=== PATIENT | male | born 1995 | race Caucasian/White ===

== ENCOUNTER 2017-08-09 21:27 | Emergency (ER) | payer BC, OTHER ==
[2017-08-09 21:34] VITALS: BP 139/90; PULSE 65; RESP 18; TEMP 98.2
[2017-08-09] MEDS ORDERED: HYDROcodone/APAP 5-325MG 1 EACH TAB PO STA (21:43)
[2017-08-09] MEDS ORDERED: CYCLOBENZAPRINE 10 MG TAB PO STA (21:43)
--- NOTE | 2017-08-09 21:46 | ED ---
Back Pain HPI - General Chief Complaint: Back Pain/Injury Stated Complaint: back problem Time Seen by Provider: 08/09/17 21:35 Source: patient, RN notes reviewed Mode of arrival: ambulatory Limitations: no limitations - History of Present Illness Initial Comments: This a 22-year-old male presents emergency Department with chief complaint of mid back pain. Patient states that he was doing some laundry felt a click snap in his back and states that he's had severe muscle spasms pain last 2 hours. Patient states she's had pain like this in the past several times states he normally does have some back issues. Patient states that he's been evaluated by his grandfather who is an orthopedic doctor. Patient states that this is the worst she's had in the past. Patient states pain is much worse with any movement especially twisting and bending. Patient tried some ibuprofen prior arrival minimal relief. Patient was advised come emergency from for pain relief. Patient denies any bowel bladder incontinence or retention. Denies any saddle anesthesias or lower extremity paresthesias. He states the pain is 9 is low back. He has no abdominal pains time denies chest pain or shortness breath. - Related Data Home Medications Medication Instructions Recorded Confirmed Ibuprofen [Motrin] 400 mg PO Q6HR PRN 08/09/17 08/09/17 Previous Rx's Medication Instructions Recorded Cyclobenzaprine [Flexeril] 10 mg PO TID PRN #15 tab 08/09/17 Hydrocodone/Acetaminophen [[place] 1 tab PO Q6HR PRN #20 tab 08/09/17 5-325] Ibuprofen [Motrin] 600 mg PO Q8HR PRN #30 tab 08/09/17 Allergies Allergy/AdvReac Type Severity Reaction Status Date / Time No Known Allergies Allergy Verified 08/09/17 21:44 Review of Systems ROS Statement: Those systems with pertinent positive or pertinent negative responses have been documented in the HPI. ROS Other: All systems not noted in ROS Statement are negative. Past Medical History Past Medical History: Pneumonia Additional Past Medical History / Comment(s): septic pneumonia admited to [facility]. History of Any Multi-Drug Resistant Organisms: None Reported Past Surgical History: Ear Surgery Additional Past Surgical History / Comment(s): myringotomy both ears Past Psychological History: No Psychological Hx Reported Smoking Status: Never smoker Past Alcohol Use History: None Reported Past Drug Use History: None Reported General Exam Limitations: no limitations General appearance: alert, in no apparent distress Head exam: Present: atraumatic, normocephalic, normal inspection Neck exam: Present: normal inspection, full ROM. Absent: tenderness, meningismus, lymphadenopathy Respiratory exam: Present: normal lung sounds bilaterally. Absent: respiratory distress, wheezes, rales, rhonchi, stridor Cardiovascular Exam: Present: regular rate, normal rhythm, normal heart sounds. Absent: systolic murmur, diastolic murmur, rubs, gallop, clicks GI/Abdominal exam: Present: soft, normal bowel sounds. Absent: distended, tenderness, guarding, rebound, rigid Extremities exam: Present: normal inspection, full ROM, normal capillary refill. Absent: tenderness, pedal edema, joint swelling, calf tenderness Back exam: Present: normal inspection, full ROM (Moderate discomfort with range of motion), tenderness (Tenderness along the paraspinal region of the thoracic mid to lower), paraspinal tenderness. Absent: vertebral tenderness Neurological exam: Present: alert, oriented X3, CN II-XII intact, reflexes normal. Absent: motor sensory deficit Course Vital Signs 08/09/17 21:33 Temperature 98.2 F Pulse Rate 65 Respiratory 18 Rate Blood Pressure 139/90 O2 Sat by Pulse 98 Oximetry Medical Decision Making - Medical Decision Making 22-year-old male presented unresponsive for thoracic back pain. Patient is resting back strain with muscle spasms. Patient has point tenderness with known injury. Patient we given pain medication and muscle relaxer. Patient was offered IM injections patient opted for oral tablets. Patient advised to follow-up with Dr. Murray orthopedics back specialist as had recurrent issues will be discharged with pain medication advised to apply heat and ice as directed 20 minutes at time return for any worsening symptoms. Disposition Clinical Impression: Acute thoracic back pain Disposition: HOME SELF-CARE Condition: Stable Instructions: Thoracic Back Strain (ED) Additional Instructions: Please return to the Emergency Department if symptoms worsen or any other concerns. Prescriptions: Cyclobenzaprine [Flexeril] 10 mg PO TID PRN #15 tab PRN Reason: Muscle Spasm Hydrocodone/Acetaminophen [[place] 5-325] 1 tab PO Q6HR PRN #20 tab PRN Reason: Pain Ibuprofen [Motrin] 600 mg PO Q8HR PRN #30 tab PRN Reason: Pain Referrals: None,Stated [Primary Care Provider] - 1-2 days David Cho DO [Doctor of Osteopathic Medicine] - 1-2 days Time of Disposition: 21:46
== END 2017-08-09 22:00 | disposition home or self-care (01) ==
LOC: EC 21:27
DX: M54.6 Pain in thoracic spine (principal); X50.1XXA Overexertion from prolonged static or awkward postures, initial encounter; Y93.E2 Activity, laundry
CPT/HCPCS: 99283

== ENCOUNTER 2018-10-12 11:09 | Emergency (ER) | payer OTHER ==
[2018-10-12] MEDS ORDERED: SODIUM CHLORIDE 0.9% 1,000 ML IV STA (12:05)
[2018-10-12] MEDS ORDERED: KETOROLAC 30 MG/ML 1 ML VIAL IVP STA (12:06)
[2018-10-12 12:37] LABS: ALT 24 U/L (21-72); AST 24 U/L (17-59); Albumin 4.5 g/dL (3.5-5.0); Alkaline Phosphatase 51 U/L (38-126); Amylase 74 U/L (30-110); Anion Gap 6 mmol/L; Basophils % (A) 1 %; Blood Urea Nitrogen 15 mg/dL (9-20); Calcium 9.5 mg/dL (8.4-10.2); Carbon Dioxide 29 mmol/L (22-30); Chloride 104 mmol/L (98-107); Eosinophils # (A) 0.1 k/uL (0-0.7); Eosinophils % (A) 2 %; Glucose 97 mg/dL (74-99); HCT 44.3 % (39.0-53.0); Lipase 267 U/L (23-300); Lymphocytes # (A) 2.7 k/uL (1.0-4.8); Lymphocytes % (A) 40 %; MCH 30.2 pg (25.0-35.0); MCHC 33.8 g/dL (31.0-37.0); MCV 89.3 fL (80.0-100.0); Mean Platelet Volume 6.5; Monocytes # (A) 0.6 k/uL (0-1.0); Monocytes % (A) 8 %; Neutrophils # (A) 3.1 k/uL (1.3-7.7); Neutrophils % (A) 47 %; Platelet Count 298 k/uL (150-450); Potassium 4.3 mmol/L (3.5-5.1); RBC 4.96 m/uL (4.30-5.90); RDW 12.3 % (11.5-15.5); Sodium 139 mmol/L (137-145); Total Protein 7.1 g/dL (6.3-8.2); WBC 6.6 k/uL (3.8-10.6)
[2018-10-12 13:25] LABS: Amorphous Sediment,Urine Rare /hpf; Appearance,Urine Cloudy (Clear); Bilirubin,Urine Negative (Negative); Blood,Urine Trace (Negative); Color,Urine Yellow; Glucose,Urine (UA) Negative (Negative); Ketones,Urine Negative (Negative); Leukocyte Esterase,Urine Trace (Negative); Mucus,Urine Many /hpf; Nitrite,Urine Negative (Negative); Protein,Urine Trace (Negative); RBC,Urine 3 /hpf (0-5); Specific Gravity,Urine 1.019 (1.001-1.035); Squamous Epithelial Cell,Urine 1 /hpf (0-4); Urobilinogen,Urine <2.0 mg/dL (<2.0); WBC,Urine 10 /hpf (0-5)
--- NOTE | 2018-10-12 14:12 | US ---
EXAMINATION TYPE: US scrotum with doppler. Grayscale and color Doppler Duplex imaging performed of t he scrotum. DATE OF EXAM: 10/12/2018 COMPARISON: NONE CLINICAL HISTORY: Pain, purulent drainage. EXAM MEASUREMENTS: TESTICLES: Right Testicle: 4.7 x 2.2 x 2.6 cm Left Testicle: 4.4 X 2.4 X 2.8 cm EPIDIDYMIS HEAD: Right Epididymis: 0.7 cm Left Epididymis: 0.9 cm Doppler performed to assess for testicular vascularity; good bilateral color flow and waveforms are s een. There is no evidence of testicular torsion. Presence of hydroceles: No Presence of varicoceles: No IMPRESSION: No sonographic evidence of epididymitis nor orchitis. No current evidence of testicular t orsion at the time of the examination.
--- NOTE | 2018-10-12 15:32 | ED ---
General Adult HPI - General Chief complaint: Abdominal Pain Stated complaint: discharge Time Seen by Provider: 10/12/18 11:26 Source: patient Mode of arrival: ambulatory Limitations: no limitations - History of Present Illness Initial comments: 23-year-old male presents to the emergency department for multiple complaints. Patient's main complaint is penile pain and discharge. Patient states this has been ongoing for the past 4-5 months. Patient states he has seen a urologist several times without diagnosis. Patient has been worked up and treated for prostatitis as well as all STDs including gonorrhea, chlamydia, Trichomonas. He has been tested for HIV and syphilis. Patient also admits to dysuria. Patient also complains of intermittent abdominal pain which has been consistent throughout his life. However it does seem to be worsening over the past several months. He states this is worse after having a bowel movement. Patient states he has a CT with and without contrast scheduled in one week. He states he is more concerned about his urethral discharge. He states he was supposed to get an ultrasound done but did not yet have insurance so did not do this.Patient has no other complaints at this time including shortness of breath, chest pain, nausea or vomiting, headache, or visual changes. - Related Data Previous Rx's Medication Instructions Recorded Doxycycline [Vibramycin] 100 mg PO BID 14 Days cap 10/12/18 Allergies Allergy/AdvReac Type Severity Reaction Status Date / Time No Known Allergies Allergy Verified 10/12/18 11:40 Review of Systems ROS Statement: Those systems with pertinent positive or pertinent negative responses have been documented in the HPI. ROS Other: All systems not noted in ROS Statement are negative. Past Medical History Past Medical History: Pneumonia Additional Past Medical History / Comment(s): vertigo, septic pneumonia admited to [facility]. History of Any Multi-Drug Resistant Organisms: None Reported Past Surgical History: Ear Surgery Additional Past Surgical History / Comment(s): myringotomy both ears Past Psychological History: No Psychological Hx Reported Smoking Status: Never smoker Past Alcohol Use History: None Reported Past Drug Use History: Marijuana General Exam Limitations: no limitations General appearance: alert, in no apparent distress Head exam: Present: atraumatic, normocephalic, normal inspection Eye exam: Present: normal appearance, PERRL, EOMI. Absent: scleral icterus, conjunctival injection, periorbital swelling ENT exam: Present: normal exam, mucous membranes moist Neck exam: Present: normal inspection, full ROM. Absent: tenderness, meningismus, lymphadenopathy Respiratory exam: Present: normal lung sounds bilaterally. Absent: respiratory distress, wheezes, rales, rhonchi, stridor Cardiovascular Exam: Present: regular rate, normal rhythm, normal heart sounds. Absent: systolic murmur, diastolic murmur, rubs, gallop, clicks GI/Abdominal exam: Present: soft, normal bowel sounds. Absent: distended, t enderness (No tenderness noted with palpation of the abdomen. Patient denies any pain at this time.), guarding, rebound, rigid exam: Absent: other (refused) Neurological exam: Present: alert, oriented X3, CN II-XII intact Psychiatric exam: Present: normal affect, normal mood Course Vital Signs 10/12/18 10/12/18 11:16 15:41 Temperature 98.4 F 98.5 F Pulse Rate 83 81 Respiratory 18 14 Rate Blood Pressure 136/78 123/70 O2 Sat by Pulse 98 97 Oximetry EKG Findings - EKG Comments: EKG Findings:: Sinus bradycardia with a ventricular rate of 52, DE int 132, QTC 398, no evidence of ST elevation or depression Medical Decision Making - Medical Decision Making 23-year-old male presents to the emergency department for a chief complaint of urethral discharge 5 months. Patient has been evaluated multiple times by urologists. He was tested for processes which was negative but he was treated regardless with Bactrim for several prescriptions. He was treated for gonorrhea chlamydia and Trichomonas as well but these tests came back negative. Patient does admit to testicular pain at times. CBC CMP unremarkable. Amylase and lipase within normal limits. Urine does show 10 white blood cells with trace blood. Ultrasound was performed which showed no evidence of epididymitis or orchitis. No evidence of testicular torsion. Discussed with patient that at this time I do not have a cause for his penile discharge. Patient states he was treated with azithromycin but never doxycycline therefore I did put patient on doxycycline for 14 days. Patient refused Rocephin as he did not want another shot that did not help him previously. Patient also refused vital stating he was thoroughly treated for Trichomonas. However these were tested in his urine. Regarding patient's abdominal pain he does not have any abdominal tenderness at this time. No pain at this time. Pain is intermittent and consistent with bowel movements. Patient will follow up for his CT outpatient which has been scheduled for next week. I believe this is appropriate as he has had these symptoms for years. Patient will follow-up with urology for urethral discharge as he is already following with them. He will also follow up with primary care. He will return here if he has any worsening symptoms. - Lab Data Result diagrams: 10/12/18 11:46 10/12/18 11:46 Lab Results 10/12/18 10/12/18 10/12/18 Range/Units 11:46 11:46 12:58 WBC 6.6 (3.8-10.6) k/uL RBC 4.96 (4.30-5.90) m/uL Hgb 15.0 (13.0-17.5) gm/dL Hct 44.3 (39.0-53.0) % MCV 89.3 (80.0-100.0) fL MCH 30.2 (25.0-35.0) pg MCHC 33.8 (31.0-37.0) g/dL RDW 12.3 (11.5-15.5) % Plt Count 298 (150-450) k/uL Neutrophils % 47 % Lymphocytes % 40 % Monocytes % 8 % Eosinophils % 2 % Basophils % 1 % Neutrophils # 3.1 (1.3-7.7) k/uL Lymphocytes # 2.7 (1.0-4.8) k/uL Monocytes # 0.6 (0-1.0) k/uL Eosinophils # 0.1 (0-0.7) k/uL Basophils # 0.0 (0-0.2) k/uL Sodium 139 (137-145) mmol/L Potassium 4.3 (3.5-5.1) mmol/L Chloride 104 (98-107) mmol/L Carbon Dioxide 29 (22-30) mmol/L Anion Gap 6 mmol/L BUN 15 (9-20) mg/dL Creatinine 0.77 (0.66-1.25) mg/dL Est GFR (CKD-EPI)AfAm >90 (>60 ml/min/1.73 sqM) Est GFR (CKD-EPI)NonAf >90 (>60 ml/min/1.73 sqM) Glucose 97 (74-99) mg/dL Calcium 9.5 (8.4-10.2) mg/dL Total Bilirubin 1.0 (0.2-1.3) mg/dL AST 24 (17-59) U/L ALT 24 (21-72) U/L Alkaline Phosphatase 51 (38-126) U/L Total Protein 7.1 (6.3-8.2) g/dL Albumin 4.5 (3.5-5.0) g/dL Amylase 74 (30-110) U/L Lipase 267 (23-300) U/L Urine Color Yellow Urine Appearance Cloudy (Clear) Urine pH 7.0 (5.0-8.0) Ur Specific [place] 1.019 (1.001-1.035) Urine Protein Trace H (Negative) Urine Glucose (UA) Negative (Negative) Urine Ketones Negative (Negative) Urine Blood Trace H (Negative) Urine Nitrite Negative (Negative) Urine Bilirubin Negative (Negative) Urine Urobilinogen <2.0 (<2.0) mg/dL Ur Leukocyte Esterase Trace H (Negative) Urine RBC 3 (0-5) /hpf Urine WBC 10 H (0-5) /hpf Ur Squamous Epith Cells 1 (0-4) /hpf Amorphous Sediment Rare H (None) /hpf Urine Mucus Many H (None) /hpf Disposition Clinical Impression: Urethral discharge in male Disposition: HOME SELF-CARE Condition: Good Instructions (If sedation given, give patient instructions): Nonspecific Urethritis in Men (ED) Additional Instructions: Please take antibiotic as directed. Please follow-up with urologist again in 1- 2 days. Follow-up with primary care as well. Go to your appointment for your CAT scan next week. Return here to the emergency department if you have any worsening symptoms. Prescriptions: Doxycycline [Vibramycin] 100 mg PO BID 14 Days cap Is patient prescribed a controlled substance at d/c from ED?: No Referrals: Ray Berrios DO [Primary Care Provider] - 1-2 days Dakota Ramos MD [STAFF PHYSICIAN] - 1-2 days Time of Disposition: 15:28
[2018-10-12 15:42] VITALS: BP 123/70; PULSE 81; RESP 14; TEMP 98.5
[2018-10-13 13:38] LABS: N. gonorrhoeae,PCR Negative (Neg,Equiv); Neisseria Source Urine
[2018-10-13 13:39] LABS: C. trachomatis,PCR Negative (Neg,Equiv); Chlamydia trachomatis Source Urine
== END 2018-10-12 15:52 | disposition home or self-care (01) ==
LOC: EC 11:09
DX: R36.9 Urethral discharge, unspecified (principal); R10.9 Unspecified abdominal pain; N50.819 Testicular pain, unspecified
CPT/HCPCS: 36415; 76870; 80053; 81001; 82150; 83690; 85025; 87086; 87491; 87591; 93005; 93975; 96361; 96374; 99284

== ENCOUNTER → 2018-10-20 | Outpatient (CLI) | payer OTHER ==
--- NOTE | 2018-10-20 09:53 | US ---
EXAMINATION TYPE: US abdomen complete DATE OF EXAM: 10/20/2018 COMPARISON: CT today CLINICAL HISTORY: R10.9 unspecified abdominal pain; hypogastric and pelvic pain; patient stated has b een on multiple antibiotics since March 2018 EXAM MEASUREMENTS: Liver Length: 15.6 cm Gallbladder Wall: 0.2 cm CBD: 0.3 cm Spleen: 10.9 cm Right Kidney: 10.4 x 5.7 x 3.6 cm Left Kidney: 10.9 x 6.9 x 4.8 cm Pancreas: wnl Liver: wnl Gallbladder: wnl Evidence for sonographic Stark's sign: no CBD: wnl Spleen: wnl Right Kidney: wnl Left Kidney: wnl Upper IVC: wnl Abd Aorta: wnl The liver is homogenous. The intrahepatic portion of the IVC and proximal abdominal aorta are within normal limits. There is no evidence of cholelithiasis. Common bile duct is unremarkable. The visu alized portions of the pancreas are homogenous. The spleen is unremarkable. Kidneys are symmetric a nd free of hydronephrosis. No renal lesions are seen. IMPRESSION: Unremarkable abdominal ultrasound. No evidence of cholelithiasis nor acute cholecystitis in this patient with hypogastric pain.
--- NOTE | 2018-10-20 12:42 | CT ---
EXAMINATION TYPE: CT abdomen pelvis wo/w con DATE OF EXAM: 10/20/2018 COMPARISON: Ultrasound abdomen from earlier today. HISTORY: Unspecified abdominal pain CT DLP: 1474 mGycm, Automated Exposure Control for Dose Reduction was Utilized. CONTRAST: CT scan of the abdomen and pelvis is performed with oral and without and with IV Contrast, patient in jected with 100 ml mL of Isovue 300. FINDINGS: LUNG BASES: No significant abnormality is appreciated. LIVER/GB: No significant abnormality is appreciated. PANCREAS: No significant abnormality is seen. SPLEEN: No significant abnormality is seen. ADRENALS: No significant abnormality is seen. KIDNEYS: No renal calculi are seen on noncontrast CT. There is symmetric cortical medullary uptake a nd excretion from both kidneys without hydronephrosis seen bilaterally. BOWEL: Oral contrast reaches level of the left colon. There is no suspicious small or large bowel dil atation. PROSTATE/SEMINAL VESICLES: No gross abnormality seen. LYMPH NODES: No greater than 1cm abdominal or pelvic lymph nodes are appreciated. OSSEOUS STRUCTURES: There is transitional-type vertebra at lumbosacral junction. OTHER: No significant additional abnormality is seen. IMPRESSION: No significant acute finding is seen to account for patient's clinical symptoms.
== END | disposition home or self-care (01) ==
LOC: RADUSMAIN 08:05
PROVIDERS: ATTEND Nurse Practitioner Family
DX: R10.9 Unspecified abdominal pain (principal)
CPT/HCPCS: 76700; 74178; Q9967